=== PATIENT | female | born 1960 | race Caucasian/White ===

== ENCOUNTER 2021-06-09 18:02 | Emergency (ER) | payer OTHER ==
--- NOTE | 2021-06-09 18:51 | NUR ---
NIL X1 WHEN CALLED FOR TRIAGE
--- NOTE | 2021-06-09 19:03 | NUR ---
NIL X2 WHEN CALLED FOR TRIAGE
--- NOTE | 2021-06-09 19:23 | NUR ---
NIL X3 WHEN CALLED FOR TRIAGE
== END 2021-06-09 19:25 | disposition left against medical advice (07) ==
LOC: ED 18:22
DX: R22.0 Localized swelling, mass and lump, head (principal); Z53.21 Procedure and treatment not carried out due to patient leaving prior to being seen by health care provider